=== PATIENT | female | born 1990 | race Two or more races ===

== ENCOUNTER 2016-02-28 10:48 | Emergency (ER) | payer SELFPAY ==
[2016-02-28 11:04] VITALS: BP 120/79
--- NOTE | 2016-02-28 12:51 | ER Document Report ---
Addendum entered and electronically signed by MIRIAM LINDO FNP 12:53: Discharge - Discharge Clinical Impression: Muscle strain of chest wall Disposition: HOME, SELF-CARE Additional Instructions: Chest Wall Pain Your chest pain has been diagnosed as coming from the chest wall. This is often caused by straining the muscles or joints in the chest during physical activity, direct trauma, coughing, or vigorous vomiting. Persons with arthritis are especially prone to this type of pain, due to inflammation of the cartilage joints near the breast bone. Occasionally, no cause can be found. Rest from strenuous physical activity. This kind of chest pain is usually made worse by movement of the chest. Depending on the symptoms, we may prescribe medicine for pain, muscle relaxation, and antiinflammatory effects. If the pain is new, and seems to be due to muscle strain, cold packs can help. Otherwise, apply gentle warmth to the painful area for 15 minutes every hour or two. You should contact the doctor immediately if things change. Further evaluation is needed if you develop a fever or cough, if the nature of the pain changes, or if you become short of breath. Prescriptions: Naproxen Sodium [Naproxen Sodium ER] 500 mg PO Q12 PRN #20 tablet.sa PRN Reason: Original Note: ED General - General Chief Complaint: Chest Wall Pain Stated Complaint: CHEST PAIN TRAVEL OUTSIDE OF THE [place] IN LAST 30 DAYS: No - HPI Patient complains to provider of: patient complains of chest wall pain right lateral of midline for 3 days - Related Data Allergies/Adverse Reactions: No Known Allergies Allergy (Verified 02/28/16 11:27) Past Medical History - General Information source: Patient Last Menstrual Period: 02/25/16 - Social History Smoking Status: Current Some Day Smoker Chew tobacco use (# tins/day): No Frequency of alcohol use: None Drug Abuse: None Family History: Reviewed & Not Pertinent Patient has suicidal ideation: No Patient has homicidal ideation: No Past Surgical History: Reports: Hx Gynecologic Surgery - Immunizations Hx Diphtheria, Pertussis, Tetanus Vaccination: Yes Review of Systems - Review of Systems Constitutional: No symptoms reported EENT: No symptoms reported Cardiovascular: No symptoms reported Respiratory: No symptoms reported Gastrointestinal: No symptoms reported Genitourinary: No symptoms reported Female Genitourinary: No symptoms reported Musculoskeletal: No symptoms reported Skin: No symptoms reported Hematologic/Lymphatic: No symptoms reported Neurological/Psychological: No symptoms reported Physical Exam - Vital signs Vitals: Temp Pulse Resp BP Pulse Ox 98.3 F 94 18 120/79 98 02/28/16 11:03 02/28/16 11:03 02/28/16 11:03 02/28/16 11:03 02/28/16 11:03 Interpretation: Normal - General General appearance: Appears well, Alert - HEENT Head: Normocephalic, Atraumatic Eyes: Normal Pupils: PERRL - Respiratory Respiratory status: No respiratory distress Chest status: Nontender, Tender, Other - Right chest wall tender on AP compression as well as lifting both arms over her head as well as using right arm in a weightbearing fashion. Breath sounds: Normal Chest palpation: Normal - Cardiovascular Rhythm: Regular Heart sounds: Normal auscultation Murmur: No - Abdominal Inspection: Normal Distension: No distension Bowel sounds: Normal Tenderness: Nontender Organomegaly: No organomegaly - Back Back: Normal, Nontender - Extremities General upper extremity: Normal inspection, Nontender, Normal color, Normal ROM , Normal temperature General lower extremity: Normal inspection, Nontender, Normal color, Normal ROM , Normal temperature, Normal weight bearing. No: Katerin's sign - Neurological Neuro grossly intact: Yes Cognition: Normal Orientation: AAOx4 [place] Coma Scale Eye Opening: Spontaneous [place] Coma Scale Verbal: Oriented Stephen Coma Scale Motor: Obeys Commands Stephen Coma Scale Total: 15 Speech: Normal Motor strength normal: LUE, RUE, LLE, RLE Sensory: Normal - Psychological Associated symptoms: Normal affect, Normal mood - Skin Skin Temperature: Warm Skin Moisture: Dry Skin Color: Normal Course - Vital Signs Vital signs: Temp Pulse Resp BP Pulse Ox 98.3 F 94 18 120/79 98 02/28/16 11:03 02/28/16 11:03 02/28/16 11:03 02/28/16 11:03 02/28/16 11:03 - Transfer of Care Notes: 02/28/16 12:49 No chest pain no exertional chest pain chest wall pain which is reproducible with AP palpation. Nonsmoker. No drug use. Saturation is 98%. Respirations 18. Pulse 94. Does not take control. Not hypertensive. Pain is reproducible bowl with right arm movement against resistance. Discharge - Discharge Clinical Impression: Muscle strain of chest wall Disposition: HOME, SELF-CARE Additional Instructions: Chest Wall Pain Your chest pain has been diagnosed as coming from the chest wall. This is often caused by straining the muscles or joints in the chest during physical activity, direct trauma, coughing, or vigorous vomiting. Persons with arthritis are especially prone to this type of pain, due to inflammation of the cartilage joints near the breast bone. Occasionally, no cause can be found. Rest from strenuous physical activity. This kind of chest pain is usually made worse by movement of the chest. Depending on the symptoms, we may prescribe medicine for pain, muscle relaxation, and antiinflammatory effects. If the pain is new, and seems to be due to muscle strain, cold packs can help. Otherwise, apply gentle warmth to the painful area for 15 minutes every hour or two. You should contact the doctor immediately if things change. Further evaluation is needed if you develop a fever or cough, if the nature of the pain changes, or if you become short of breath. Prescriptions: Naproxen Sodium [Naproxen Sodium ER] 500 mg PO Q12 PRN #20 tablet.sa PRN Reason:
== END 2016-02-28 13:10 | disposition home or self-care (01) ==
LOC: ER 10:48
DX: S29.011A Strain of muscle and tendon of front wall of thorax, initial encounter (principal); X58.XXXA Exposure to other specified factors, initial encounter; R07.89 Other chest pain
CPT/HCPCS: 99284

== ENCOUNTER 2016-06-26 11:09 | Emergency (ER) | payer SELFPAY ==
--- NOTE | 2016-06-26 11:34 | ER Document Report ---
HPI - HPI Patient complains to provider of: low back pain Onset: Other - 3 days Onset/Duration: Persistent Quality of pain: Achy Severity: Moderate Pain Level: 3 Context: Patient presents emergency department with complaints of low midline back pain that started 3 days ago. Patient reports she rolled over in bed and felt a pop and has been having pain since then. She denies urinary or bowel incontinence or retention. She denies numbness tingling. She denies past medical history of injury to her back. Denies cancer. Denies trauma. Denies all other symptoms such as fever vomiting diarrhea. Denies pain with void. Denies urinary frequency. Patient reports she took [id number] ibuprofen yesterday without relief of symptoms. Reports she's had to miss work yesterday and today due to the pain Associated Symptoms: None Exacerbated by: Standing - sitting to standing Relieved by: Denies Similar symptoms previously: No Recently seen / treated by doctor: No - REPRODUCTIVE LMP: 06/03/16 Reproductive: DENIES: : - DERM Skin Color: Normal Past Medical History - General Information source: Patient Last Menstrual Period: 06/03/16 - Social History Smoking Status: Unknown if Ever Smoked Cigarette use (# per day): No Frequency of alcohol use: None Drug Abuse: None Occupation: [employer] Lives with: Family Family History: Reviewed & Not Pertinent Patient has suicidal ideation: No Patient has homicidal ideation: No Renal/ Medical History: Denies: Hx Peritoneal Dialysis Psychiatric Medical History: Reports: Hx Depression - & anxiety Past Surgical History: Reports: Hx Gynecologic Surgery - Immunizations Hx Diphtheria, Pertussis, Tetanus Vaccination: Yes Vertical Provider Document - CONSTITUTIONAL Agree With Documented VS: Yes Exam Limitations: No Limitations General Appearance: WD/WN, Mild Distress - winces when standing - INFECTION CONTROL TRAVEL OUTSIDE OF THE [place] IN LAST 30 DAYS: No COUNTRY TRAVELED TO/FROM: [place] - HEENT HEENT: Atraumatic, Normocephalic - NECK Neck: Normal Inspection, Supple. negative: Lymphadenopathy-Left, Lymphadenopathy-Right - RESPIRATORY Respiratory: Breath Sounds Normal, No Respiratory Distress - CARDIOVASCULAR Cardiovascular: Regular Rate, Regular Rhythm - GI/ABDOMEN Gastrointestinal: Abdomen Soft, Abdomen Non-Tender - BACK Back: Normal Inspection - No obvious deformity complains of midline low back pain good distal movement and sensation no weakness - MUSCULOSKELETAL/EXTREMETIES Musculoskeletal/Extremeties: MAEW, FROM, Non-Tender - NEURO Level of Consciousness: Awake, Alert, Appropriate Motor/Sensory: No Motor Deficit - DERM Integumentary: Warm, Dry Adult Front & Back Diagram: 1 - c/o low back pain, no erythema, no warmth,no swelling, good distal movement and sensation Course - Re-evaluation Re-evalutation: 06/26/16 11:58 The patient presents with low back pain without signs of spinal cord compression , cauda equine syndrome, infection, aneurysm, or other serious etiology. The patient is neurologically intact. The patient has good distal movement and sensation, denies urinary or bowel incontinence/retention. Given the extremely low risk of these diagnosis, further testing and evaluation for these possibilities does not appear to be indicated at this time. The patient has been instructed to return if the symptoms worsen or change in anyway. Discharge - Discharge Clinical Impression: Low back pain Qualifiers: Chronicity: acute Back pain laterality: midline Sciatica presence: without sciatica Qualified Code(s): M54.5 - Low back pain Condition: Stable Disposition: HOME, SELF-CARE Instructions: Ice Packs ([facility]), Warm Packs ([facility]), Low Back Pain ([facility]), Muscle Relaxers ([facility]), Ibuprofen (General) ([facility]) Additional Instructions: *You have been evaluated for low back pain *Take medication as prescribed *Rest/Ice- heat as directed *Follow up with a primary care provider within one week for recheck *Return to ED for worsening condition, changes, needs, concerns Prescriptions: Cyclobenzaprine HCl [Flexeril 10 Mg Tablet] 10 mg PO TID #30 tablet Ibuprofen [Motrin 800 mg Tablet] 800 mg PO TID #30 tablet Forms: Return to Work
[2016-06-26] MEDS ORDERED: IBUPROFEN 800 MG TABLET PO ONE (11:47)
[2016-06-26 11:58] VITALS: BP 116/72
== END 2016-06-26 11:55 | disposition home or self-care (01) ==
LOC: ER 11:09
DX: M54.5 Low back pain (principal)
CPT/HCPCS: 99283

== ENCOUNTER 2016-11-26 15:26 | Emergency (ER) | payer SELFPAY ==
--- NOTE | 2016-11-26 16:36 | ER Document Report ---
ED Medical Screen (RME) - General Chief Complaint: Abdominal Pain Stated Complaint: NEEDS CONFIRMATION OF Time Seen by Provider: 11/26/16 16:34 Mode of Arrival: Ambulatory Information source: Patient Notes: This is a 26-year-old female who is 6 para 2 (2 ectopic pregnancies, 2 miscarriages), last normal menstrual period October 22, reports positive test at home presents to the emergency room with abdominal cramping. TRAVEL OUTSIDE OF THE [place] IN LAST 30 DAYS: No COUNTRY TRAVELED TO/FROM: [facility] - HPI Onset: Last week Onset/Duration: Gradual Quality of pain: Cramping Severity: None Pain Level: Denies Associated Symptoms: denies: Chest pain, Fever, Shortness of breath Exacerbated by: Denies Relieved by: Denies Similar symptoms previously: Yes Recently seen / treated by doctor: No - Related Data Smoking: Non-smoker Frequency of alcohol use: None Drug Abuse: None Allergies/Adverse Reactions: No Known Allergies Allergy (Verified 11/26/16 15:32) Past Medical History - General Information source: Patient - Social History Cigarette use (# per day): No Chew tobacco use (# tins/day): No Frequency of alcohol use: None Drug Abuse: None Lives with: Family Family history: Reviewed & Not Pertinent - Medical History Medical History: Negative Renal/ Medical History: Denies: Hx Peritoneal Dialysis Psychiatric Medical History: Reports: Hx Depression - & anxiety Past Surgical History: Reports: Hx Gynecologic Surgery - Immunizations Hx Diphtheria, Pertussis, Tetanus Vaccination: Yes Review of Systems - Review of Systems Constitutional: denies: Chills, Fever EENT: No symptoms reported Cardiovascular: No symptoms reported Respiratory: No symptoms reported Gastrointestinal: See HPI Genitourinary: See HPI Female Genitourinary: See HPI Musculoskeletal: No symptoms reported Skin: No symptoms reported Hematologic/Lymphatic: No symptoms reported Neurological/Psychological: No symptoms reported Physical Exam - Vital signs Vitals: Temp Pulse Resp BP Pulse Ox 98.8 F 86 16 142/78 H 97 11/26/16 15:34 11/26/16 15:34 11/26/16 15:34 11/26/16 15:34 11/26/16 15:34 Notes: Physical exam: GENERAL: 26-year-old female, alert and oriented 3, no acute distress HEAD: Atraumatic, normocephalic. EYES: Pupils equal round and reactive to light, extraocular movements intact, sclera anicteric, conjunctiva are normal. ENT: TMs normal, nares patent, oropharynx clear without exudates. Moist mucous membranes. NECK: Normal range of motion, supple without obvious mass or JVD. LUNGS: Breath sounds clear to auscultation bilaterally and equal. No wheezes rales or rhonchi. HEART: Regular rate and rhythm without murmurs, rubs or gallops. ABDOMEN: Soft, normoactive bowel sounds. No tenderness to palpation. No guarding, no rebound. No masses appreciated. EXTREMITIES: Normal range of motion, no pitting or edema. No clubbing or cyanosis. NEUROLOGICAL: Cranial nerves II through XII grossly intact. Normal speech, moving all extremities. PSYCH: Normal mood, normal affect. SKIN: Warm, Dry, normal turgor, no rashes or lesions noted. Course - Re-evaluation Re-evalutation: 11/26/16 18:57 Ultrasound shows a viable intrauterine at approximately 6 weeks 1 day. Beta quant is normal. Blood type is O+ (no need for RhoGam). I will refer the patient [facility]. - Vital Signs Vital signs: Temp Pulse Resp BP Pulse Ox 98.8 F 86 16 142/78 H 97 11/26/16 15:34 11/26/16 15:34 11/26/16 15:34 11/26/16 15:34 11/26/16 15:34 - Laboratory Laboratory results interpreted by me: 11/26/16 11/26/16 16:48 16:48 Beta HCG, Quant 91372.00 H Ur Leukocyte Esterase TRACE H Doctor's Discharge - Discharge Clinical Impression: Pelvic cramping, First trimester , uti Condition: Stable Disposition: HOME, SELF-CARE Instructions: Urinary Tract Infection ([facility]) Additional Instructions: The ultrasound shows a viable intrauterine . The baby level in the blood was good. The urine analysis does show a few white cells in the urine and you could be starting to have a urine infection. Thank you for choosing [facility] for your care. The examination and treatment you have received in the Emergency Department today has been rendered on an emergency basis only and is not intended to be a substitute for complete medical care. You should contact your follow-up physician as it is important that he or she examine you for any new or remaining problems. If given a copy of any lab tests or radiology reports, please bring them with you when you see your physician. If your problem worsens or new symptoms appear and you are unable to arrange prompt follow-up care, return to the Emergency Department. Specific signs to look out for: Worsening pain and cramping, vaginal bleeding. Any other instructions: Rest, drink plenty of fluids. Take the antibiotics as prescribed. Call the [facility] for a follow-up appointment. Call tomorrow. Prescriptions: Cephalexin Monohydrate [Keflex 500 mg Capsule] 500 mg PO Q6H 5 Days capsule Referrals: VALENTÍN CASTRO MD [ACTIVE STAFF] - Follow up tomorrow (this is the number for the [facility])
[2016-11-26 17:32] LABS: APPEARANCE,URINE SLIGHTLY-CLOUDY; BILIRUBIN,URINE NEGATIVE (NEGATIVE); GLUCOSE, URINE NEGATIVE (NEGATIVE); KETONES,URINE NEGATIVE (NEGATIVE); LEUKOCYTE ESTERASE,URINE TRACE (NEGATIVE); NITRITE,URINE NEGATIVE (NEGATIVE); PROTEIN,URINE NEGATIVE (NEGATIVE); URINE SPECIFIC GRAVITY 1.026; UROBILINOGEN,URINE NEGATIVE mg/dL (<2.0)
--- NOTE | 2016-11-26 18:46 | RADIOLOGY REPORT (SQ) ---
EXAM DESCRIPTION: U/S OB TRANSVAG W/DOPPLER COMPLETED DATE/TIME: 11/26/2016 6:17 pm REASON FOR STUDY: abd cramping COMPARISON: None. TECHNIQUE: Transvaginal static and realtime grayscale images acquired of the pelvis. Additional fito cted spectral and color Doppler images recorded. All images stored on PACs. bHCG: Pending. LIMITATIONS: None. FINDINGS: FETUS: Living intrauterine . EGA: 6 weeks 1 day FHR: 116 beats per minute. SUBCHORIONIC BLEED: No SIZE OF BLEED: Not applicable. UTERUS: No masses or anomalies. 9.6 x 5.3 x 4.7 cm. CERVICAL LENGTH: 3.3 cm. Closed. RIGHT ADNEXA: Normal ovary with normal vascular flow. 2 x 1.1 x 1.5 cm. No adnexal free fluid. No adnexal masses. LEFT ADNEXA: Normal ovary with normal vascular flow. There is a 19 x 15 x 13 mm cyst. The ovary betzaida sures 3.8 x 3.1 x 3.2 cm. No adnexal free fluid. No adnexal masses. FREE FLUID: None. OTHER: No other significant finding. IMPRESSION: LIVING INTRAUTERINE . EGA 6 weeks 1 day Trimester of : First - 0 to 13 weeks. TECHNICAL DOCUMENTATION: JOB ID: [id number]- All Rights Reserved
[2016-11-26 19:21] VITALS: BP 138/81
== END 2016-11-26 19:19 | disposition home or self-care (01) ==
LOC: ER 15:26
DX: O26.91 Pregnancy related conditions, unspecified, first trimester (principal); O23.41 Unspecified infection of urinary tract in pregnancy, first trimester; Z3A.01 Less than 8 weeks gestation of pregnancy
CPT/HCPCS: 36415; 76817; 81001; 84702; 86900; 86901; 93976; 99284

== ENCOUNTER 2016-12-24 17:31 | Emergency (ER) | payer MEDICAID ==
--- NOTE | 2016-12-24 18:27 | ER Document Report ---
ED General - General Chief Complaint: Sinus Pain Stated Complaint: SINUS PAIN, ABDOMINAL PAIN Time Seen by Provider: 12/24/16 18:16 Notes: Patient is a 26-year-old female, at about 9 weeks gestation by first trimester ultrasound that comes emergency department for 2 complaints. First complaint is 3 days of worsening congestion, cough, and sinus pressure. She denies fever, she wrote shortness of breath on her complaint but she denies shortness of breath to me. She does report occasional sneezing and coughing. She does not smoke. She also reports that she has started to have intermittent sharp pelvic pains. She denies vaginal bleeding. She states she is very worried about the pain because she has had history of ectopic pregnancies and miscarriages. She denies flank pain, vomiting. TRAVEL OUTSIDE OF THE [place] IN LAST 30 DAYS: No COUNTRY TRAVELED TO/FROM: [facility] - Related Data Allergies/Adverse Reactions: No Known Allergies Allergy (Verified 12/24/16 17:51) Past Medical History - General Information source: Patient - Social History Smoking Status: Never Smoker Frequency of alcohol use: None Drug Abuse: None Lives with: Family Family History: Reviewed & Not Pertinent Patient has suicidal ideation: No Patient has homicidal ideation: No Renal/ Medical History: Denies: Hx Peritoneal Dialysis Psychiatric Medical History: Reports: Hx Depression - & anxiety Past Surgical History: Reports: Hx Gynecologic Surgery - Immunizations Hx Diphtheria, Pertussis, Tetanus Vaccination: Yes Review of Systems - Review of Systems Constitutional: See HPI EENT: See HPI Cardiovascular: No symptoms reported Respiratory: See HPI Gastrointestinal: See HPI Genitourinary: See HPI Female Genitourinary: See HPI Musculoskeletal: No symptoms reported Skin: No symptoms reported Hematologic/Lymphatic: No symptoms reported Neurological/Psychological: No symptoms reported Physical Exam - Vital signs Vitals: Temp Pulse Resp BP Pulse Ox 98.2 F 84 16 126/78 H 97 12/24/16 17:51 12/24/16 17:51 12/24/16 17:51 12/24/16 17:51 12/24/16 17:51 Interpretation: Normal - General General appearance: Appears well, Alert, Anxious In distress: None - HEENT Head: Normocephalic, Atraumatic Eyes: Normal Conjunctiva: Normal Extraocular movements intact: Yes Eyelashes: Normal Pupils: PERRL Ears: Normal External canal: Normal Tympanic membrane: Normal Sinus: Maxillary - Tenderness mainly over the left maxillary area Nasal: Clear rhinorrhea Mouth/Lips: Normal Mucous membranes: Normal Pharynx: Normal. No: Erythema, Exudate, Tonsillar hypertrophy Neck: Normal. No: Anterior cervical chain, Posterior cervical chain - Respiratory Respiratory status: No respiratory distress. No: Labored, Tachypnea Chest status: Nontender Breath sounds: Normal. No: Decreased air movement, Nonproductive cough, Wheezing Chest palpation: Normal - Cardiovascular Rhythm: Regular. No: Tachycardia Heart sounds: Normal auscultation, S1 appreciated, S2 appreciated Murmur: No - Abdominal Inspection: Normal Distension: No distension Bowel sounds: Normal Tenderness: Tender - Very mild generalized lower abdominal tenderness, nonspecific, no guarding, no rigidity - Back Back: Normal, Nontender. No: Tender, CVA tenderness - Extremities General upper extremity: Normal inspection, Nontender, Normal ROM, Normal strength General lower extremity: Normal inspection, Nontender, Normal ROM, Normal strength - Neurological Neuro grossly intact: Yes Cognition: Normal Orientation: AAOx4 [place] Coma Scale Eye Opening: Spontaneous [place] Coma Scale Verbal: Oriented Stephen Coma Scale Motor: Obeys Commands [place] Coma Scale Total: 15 Speech: Normal Motor strength normal: LUE, RUE, LLE, RLE Sensory: Normal - Psychological Associated symptoms: Normal affect, Normal mood - Skin Skin Temperature: Warm Skin Moisture: Dry Skin Color: Normal Course - Re-evaluation Re-evalutation: Patient is congested, has sinus tenderness, appears to have an upper respiratory viral infection with additional sinusitis. Very soft abdomen with only mild generalized tenderness. Patient becomes very easily tearful. She is very anxious about the abdominal pain she is having, appears to be mainly with cough and sneezing, I discussed this with patient but she remains concerned. Urinalysis performed, ultrasound performed to evaluate pelvic pain, patient declines pelvic exam. Urinalysis showing elevated specific gravity but no infection. Ultrasound does show slightly elevated heart rate but does show heart rate along with normal-appearing intrauterine . Unremarkable ovaries. On reexamination patient with no significant change. I discussed this with patient in detail. Providing treatments for sinus infection, discussed follow- up and return precautions, patient states understanding and agreement. - Vital Signs Vital signs: Temp Pulse Resp BP Pulse Ox 98.2 F 84 16 126/78 H 97 12/24/16 17:51 12/24/16 17:51 12/24/16 17:51 12/24/16 17:51 12/24/16 17:51 - Laboratory Laboratory results interpreted by me: 12/24/16 12/24/16 18:55 19:05 Beta HCG, Quant 938300.00 H Urine Ketones TRACE H Urine Urobilinogen 4.0 H Discharge - Discharge Clinical Impression: Abdominal cramping affecting Upper respiratory infection Qualifiers: URI type: unspecified URI Qualified Code(s): J06.9 - Acute upper respiratory infection, unspecified Sinusitis Qualifiers: Sinusitis location: maxillary Chronicity: acute Recurrence: non-recurrent Qualified Code(s): J01.00 - Acute maxillary sinusitis, unspecified Condition: Stable Disposition: HOME, SELF-CARE Additional Instructions: Your workup shows some dehydration, please improve your hydration on a daily basis. Her son shows living in the uterus without any obvious complications or abnormalities. Your examinations is consistent with a viral upper respiratory infection along with developing sinus infection. Take the amoxicillin as prescribed, use the nasal spray as prescribed, take Tylenol for pain, take Benadryl to help you sleep and reduce congestion. Follow-up with [employer]. Return to emergency department for any concerning or worsening symptoms including fever, difficulty breathing, developing pain in your abdomen, or any other concerning symptoms. Prescriptions: Amoxicillin Trihydrate [Amoxil 500 mg Capsule] 500 mg PO TID #21 cap Fluticasone Propionate [Flonase Nasal Raymond 50 Mcg/Raymond 16 gm] 2 sprays NASL Q12 #1 inhaler
[2016-12-24 19:38] LABS: APPEARANCE,URINE SLIGHTLY-CLOUDY; BILIRUBIN,URINE NEGATIVE (NEGATIVE); GLUCOSE, URINE NEGATIVE (NEGATIVE); KETONES,URINE TRACE mg/dL (NEGATIVE); LEUKOCYTE ESTERASE,URINE NEGATIVE (NEGATIVE); NITRITE,URINE NEGATIVE (NEGATIVE); PROTEIN,URINE NEGATIVE (NEGATIVE); URINE SPECIFIC GRAVITY 1.025
--- NOTE | 2016-12-24 19:57 | RADIOLOGY REPORT (SQ) ---
EXAM DESCRIPTION: U/S OB TRANSVAG W/DOPPLER COMPLETED DATE/TIME: 12/24/2016 7:29 pm REASON FOR STUDY: pelvic pain and cramping COMPARISON: 11/26/2016 TECHNIQUE: Transvaginal static and realtime grayscale images acquired of the pelvis. Additional fito cted spectral and color Doppler images recorded. All images stored on PACs. bHCG: Not available LIMITATIONS: None. FINDINGS: FETUS: Living intrauterine . EGA: 10 weeks 2 days BERTA: 07/20/2017 FHR: 178 beats per minute. SUBCHORIONIC BLEED: No SIZE OF BLEED: Not applicable. UTERUS: No masses. No anomalies. CERVICAL LENGTH: 3.4 sign Closed. RIGHT ADNEXA: Right ovary was not visualized. No adnexal free fluid. No adnexal masses. LEFT ADNEXA: Normal ovary with normal vascular flow. No adnexal free fluid. No adnexal masses. FREE FLUID: None. OTHER: No other significant finding. IMPRESSION: LIVING INTRAUTERINE . EGA 10 weeks 2 days Trimester of : First - 0 to 13 weeks. TECHNICAL DOCUMENTATION: JOB ID: [id number] [employer]- All Rights Reserved
[2016-12-24 21:09] VITALS: BP 142/75
== END 2016-12-24 21:05 | disposition home or self-care (01) ==
LOC: ER 17:31
DX: O99.519 Diseases of the respiratory system complicating pregnancy, unspecified trimester (principal); J01.00 Acute maxillary sinusitis, unspecified; O26.899 Other specified pregnancy related conditions, unspecified trimester; R10.2 Pelvic and perineal pain; R10.817 Generalized abdominal tenderness; R05 Cough; R06.7 Sneezing; Z3A.00 Weeks of gestation of pregnancy not specified; Z87.59 Personal history of other complications of pregnancy, childbirth and the puerperium
CPT/HCPCS: 36415; 76817; 81001; 84702; 93976; 99284

== ENCOUNTER 2018-12-07 17:02 | Emergency (ER) | payer MEDICAID ==
--- NOTE | 2018-12-07 17:19 | ER Document Report ---
ED Medical Screen (RME) - General Chief Complaint: OB Problem (>20wk) Stated Complaint: ABDOMINAL CRAMPING Time Seen by Provider: 12/07/18 17:17 Mode of Arrival: Ambulatory Notes: Patient presents stating that she is about 3 months . Patient reports pelvic cramping. Patient does report some dysuria. Patient said symptoms for the past 2 days. No vaginal bleeding or discharge. I have greeted and performed a rapid initial assessment of this patient. A comprehensive ED assessment and evaluation of the patient, analysis of test results and completion of the medical decision making process will be conducted by additional ED providers. TRAVEL OUTSIDE OF THE [place] IN LAST 30 DAYS: No COUNTRY TRAVELED TO/FROM: [facility] - Related Data Allergies/Adverse Reactions: No Known Allergies Allergy (Verified 12/24/16 17:51) Past Medical History - Social History Family history: Reviewed & Not Pertinent Renal/ Medical History: Denies: Hx Peritoneal Dialysis Psychiatric Medical History: Reports: Hx Depression - & anxiety Past Surgical History: Reports: Hx Gynecologic Surgery - Immunizations Hx Diphtheria, Pertussis, Tetanus Vaccination: Yes Physical Exam - Vital signs Vitals: Temp Pulse Resp BP Pulse Ox 98.2 F 87 16 125/77 98 12/07/18 17:09 12/07/18 17:09 12/07/18 17:09 12/07/18 17:09 12/07/18 17:09 - Abdominal Tenderness: Tender - Lower pelvic Course - Vital Signs Vital signs: Temp Pulse Resp BP Pulse Ox 98.2 F 87 16 125/77 98 12/07/18 17:09 12/07/18 17:09 12/07/18 17:09 12/07/18 17:09 12/07/18 17:09
[2018-12-07 18:03] LABS: APPEARANCE,URINE CLEAR; BILIRUBIN,URINE NEGATIVE (NEGATIVE); COLOR,URINE YELLOW; GLUCOSE, URINE NEGATIVE (NEGATIVE); KETONES,URINE NEGATIVE (NEGATIVE); PROTEIN,URINE NEGATIVE (NEGATIVE); URINE SPECIFIC GRAVITY 1.014; UROBILINOGEN,URINE NEGATIVE mg/dL (<2.0)
[2018-12-07 18:04] LABS: ABSOLUTE EOSINOPHILS # (AUTO) 0.2 10^3/uL (0.0-0.6); ABSOLUTE LYMPHOCYTES (AUTO) 1.9 10^3/uL (0.5-4.7); ABSOLUTE MONOCYTES (AUTO) 0.5 10^3/uL (0.1-1.4); ABSOLUTE NEUT (AUTO) 5.7 10^3/uL (1.7-8.2); BASOPHILS % (AUTO) 0.4 % (0-2); EOSINOPHILS % (AUTO) 2.1 % (0-6); HEMATOCRIT 38.6 % (36.0-47.0); MEAN CORPUSCULAR HEMOGLOBIN 29.5 pg (27.0-33.4); MEAN CORPUSCULAR HGB CONC 33.7 g/dL (32.0-36.0); MEAN CORPUSCULAR VOLUME 88 fl (80-97); MONOCYTES % (AUTO) 6.4 % (3-13); PLATELET COUNT 181 10^3/uL (150-450); RED BLOOD COUNT 4.42 10^6/uL (3.72-5.28); RED CELL DISTRIBUTION WIDTH 14.3 % (11.5-14.0); SEGMENTED NEUTROPHILS % (AUTO) 68.1 % (42-78); TOTAL CELLS COUNTED % (AUTO) 100 %; WHITE BLOOD COUNT 8.4 10^3/uL (4.0-10.5)
--- NOTE | 2018-12-07 18:43 | ER Document Report ---
ED General - General Chief Complaint: Abdominal Cramping Stated Complaint: ABDOMINAL CRAMPING Time Seen by Provider: 12/07/18 17:17 Mode of Arrival: Ambulatory TRAVEL OUTSIDE OF THE [place] IN LAST 30 DAYS: No COUNTRY TRAVELED TO/FROM: [facility] - HPI Notes: Patient is a G7, P3 female who believes she is at approximately 9 weeks gestation who presents to the emergency department for evaluation. She is been having lower abdominal cramping for the last couple of days. She denies any vaginal bleeding. No fevers or chills. No urinary symptoms. She does states she is been having emesis, nearly every day. She attributes this to the . She has not yet had an ultrasound. She is still waiting to see the health department. - Related Data Allergies/Adverse Reactions: No Known Allergies Allergy (Verified 12/24/16 17:51) Past Medical History - General Information source: Patient - Social History Smoking Status: Unknown if Ever Smoked Family History: Reviewed & Not Pertinent Patient has suicidal ideation: No Patient has homicidal ideation: No Renal/ Medical History: Denies: Hx Peritoneal Dialysis Psychiatric Medical History: Reports: Hx Depression - & anxiety Past Surgical History: Reports: Hx Gynecologic Surgery - Immunizations Hx Diphtheria, Pertussis, Tetanus Vaccination: Yes Review of Systems - Review of Systems Constitutional: No symptoms reported EENT: No symptoms reported Cardiovascular: No symptoms reported Respiratory: No symptoms reported Gastrointestinal: See HPI Genitourinary: No symptoms reported Female Genitourinary: See HPI Musculoskeletal: No symptoms reported Skin: No symptoms reported Neurological/Psychological: No symptoms reported Physical Exam - Vital signs Vitals: Temp Pulse Resp BP Pulse Ox 98.2 F 87 16 125/77 98 12/07/18 17:09 12/07/18 17:09 12/07/18 17:09 12/07/18 17:09 12/07/18 17:09 - Notes Notes: Vital signs reviewed, please refer to chart. Head is normocephalic, atraumatic. Pupils equal round, reactive to light. Neck is supple without meningismus. Heart is regular rate and rhythm. Lungs are clear to auscultation bilaterally. Abdomen is soft, nontender, normoactive bowel sounds throughout. Extremities without cyanosis, clubbing. Posterior calves are nontender. Peripheral pulses are equal. Skin is warm and dry. Patient is awake, alert, neurological exam is nonfocal. Course - Re-evaluation Re-evalutation: 12/07/18 18:42 Patient presents emergency department for evaluation. She has nausea and vomiting associated with . She is not really nauseated now. I will then send her home with a prescription for likely just. Laboratory inve stigations are largely unremarkable. She did not have any significant blood or infection signs in her urine. Awaiting ultrasound. Patient remained stable, will continue to monitor. 12/07/18 20:19 Imaging was unremarkable, IUP identified. Urine testing does not fact reveal gonorrhea. Patient covered with Rocephin, Zithromax. Results explained to her. She is to follow-up with the health department, return to the ED with worsening or new concerning symptoms. I will send her home with a prescription for likely just given her nausea and vomiting. - Vital Signs Vital signs: Temp Pulse Resp BP Pulse Ox 98.2 F 87 16 125/77 98 12/07/18 17:09 12/07/18 17:09 12/07/18 17:09 12/07/18 17:09 12/07/18 17:09 - Laboratory Result Diagrams: 12/07/18 17:38 Laboratory results interpreted by me: 12/07/18 12/07/18 17:38 17:38 RDW 14.3 H N.gonorrhoeae DNA (PCR) DETECTED H - Diagnostic Test Radiology reviewed: Reports reviewed Radiology results interpreted by me: 12/07/18 20:19 Obstetrics Ultrasound 12/07/18 17:18 IMPRESSION: SINGLE LIVING INTRAUTERINE . EGA of 11 weeks 5 days Trimester of : First trimester - 0 to 13 weeks. Discharge - Discharge Clinical Impression: Gonorrhea, related nausea and vomiting, antepartum Pelvic pain affecting Qualifiers: Trimester: first trimester Qualified Code(s): O26.891 - Other specified related conditions, first trimester; R10.2 - Pelvic and perineal pain Condition: Stable Disposition: HOME, SELF-CARE Instructions: Gonorrhea ([facility]), Pelvic Pain in ([facility]) Additional Instructions: Follow-up with the health department this week. Return to the emergency department with worsening or new concerning symptoms of any sort.
--- NOTE | 2018-12-07 18:59 | RADIOLOGY REPORT (SQ) ---
EXAM DESCRIPTION: U/S OB TRANSVAGINAL W/O DOP COMPLETED DATE/TIME: 12/07/2018 6:35 pm REASON FOR STUDY: pelvic pain COMPARISON: None. TECHNIQUE: Transabdominal static and realtime grayscale images acquired of the pelvis. Additional se lected spectral and color Doppler images recorded. All images stored on PACs. bHCG: Not ordered CLINICAL DATES: 11 weeks 1 day LIMITATIONS: None. FINDINGS: FETUS: Single Living intrauterine . ULTRASOUND EGA: 11 weeks 5 days ULTRASOUND BERTA: 07/11/2019 EFW: Not applicable less than 20 weeks. CRL: 4.9 cm FHR: 163 beats per minute. SURVEY: No visualized anomalies. AMNIOTIC FLUID: Adequate amount. PLACENTA: Not yet developed due to early gestation. SUBCHORIONIC BLEED: No. SIZE OF BLEED: Not applicable. UTERUS: No masses. No anomalies. CERVICAL LENGTH: 3.3 Closed. RIGHT ADNEXA: Normal ovary with normal vascular flow. No adnexal free fluid. No adnexal masses. LEFT ADNEXA: Normal ovary with normal vascular flow. No adnexal free fluid. No adnexal masses. FREE FLUID: None. OTHER: No other significant finding. IMPRESSION: SINGLE LIVING INTRAUTERINE . EGA of 11 weeks 5 days Trimester of : First trimester - 0 to 13 weeks. TECHNICAL DOCUMENTATION: JOB ID: [id number] [employer]- All Rights Reserved rev Reading location - IP/workstation name: [email or web address]
[2018-12-07 19:27] LABS: CHLAM PCR NOT DETECTED (NOT DETECT)
[2018-12-07] MEDS ORDERED: CEFTRIAXONE INJ 250 MG VIAL IM ONE (20:01)
[2018-12-07] MEDS ORDERED: AZITHROMYCIN 250 MG TABLET PO ONE (20:02)
[2018-12-07 21:20] VITALS: BP 106/69
== END 2018-12-07 21:20 | disposition home or self-care (01) ==
LOC: ER 17:02
DX: O98.211 Gonorrhea complicating pregnancy, first trimester (principal); O21.9 Vomiting of pregnancy, unspecified; O26.891 Other specified pregnancy related conditions, first trimester; R10.2 Pelvic and perineal pain; Z3A.00 Weeks of gestation of pregnancy not specified
CPT/HCPCS: 36415; 85025; 81001; 87491; 87591; 76817; Q0144; J0696; 96372; 99284

== ENCOUNTER 2019-03-30 10:00 | Outpatient (CLI) | payer MEDICAID ==
[2019-03-30 10:48] LABS: APPEARANCE,URINE CLEAR; BILIRUBIN,URINE NEGATIVE (NEGATIVE); COLOR,URINE YELLOW; GLUCOSE, URINE NEGATIVE (NEGATIVE); KETONES,URINE NEGATIVE (NEGATIVE); LEUKOCYTE ESTERASE,URINE TRACE (NEGATIVE); NITRITE,URINE NEGATIVE (NEGATIVE); PROTEIN,URINE NEGATIVE (NEGATIVE); URINE SPECIFIC GRAVITY 1.019; UROBILINOGEN,URINE NEGATIVE mg/dL (<2.0)
[2019-03-30 11:10] LABS: URINE AMPHETAMINES SCREEN NEGATIVE; URINE BARBITURATES SCREEN NEGATIVE; URINE BENZODIAZEPINES SCREEN NEGATIVE; URINE COCAINE SCREEN NEGATIVE; URINE METHADONE SCREEN NEGATIVE; URINE PHENCYCLIDINE SCREEN NEGATIVE
[2019-03-30 11:17] LABS: URINE MARIJUANA (THC) SCREEN UNCONFIRMED POSITIVE
== END 2019-03-30 11:07 | disposition home or self-care (01) ==
LOC: LC 10:00
PROVIDERS: ATTEND Obstetrics & Gynecology
PROC: 4A1HXCZ Monitoring of Products of Conception, Cardiac Rate, External Approach (ICD-10-PCS; principal; 2019-03-30)
DX: O36.8120 Decreased fetal movements, second trimester, not applicable or unspecified (principal); Z3A.27 27 weeks gestation of pregnancy
CPT/HCPCS: 59899; 81001; 80307; G0480 ×2; 80349

== ENCOUNTER 2019-06-18 06:13 | Inpatient (IN) | payer MEDICAID ==
[2019-06-15 09:33] LABS: ABSOLUTE EOSINOPHILS # (AUTO) 0.1 10^3/uL (0.0-0.6); ABSOLUTE LYMPHOCYTES (AUTO) 1.5 10^3/uL (0.5-4.7); ABSOLUTE MONOCYTES (AUTO) 0.4 10^3/uL (0.1-1.4); ABSOLUTE NEUT (AUTO) 4.2 10^3/uL (1.7-8.2); BASOPHILS % (AUTO) 0.2 % (0-2); EOSINOPHILS % (AUTO) 1.8 % (0-6); HEMOGLOBIN 11.2 g/dL (12.0-15.5); LYMPHOCYTES % (AUTO) 23.6 % (13-45); MEAN CORPUSCULAR HEMOGLOBIN 30.7 pg (27.0-33.4); MEAN CORPUSCULAR HGB CONC 34.9 g/dL (32.0-36.0); MEAN CORPUSCULAR VOLUME 88 fl (80-97); MONOCYTES % (AUTO) 6.6 % (3-13); PLATELET COUNT 215 10^3/uL (150-450); RED BLOOD COUNT 3.65 10^6/uL (3.72-5.28); RED CELL DISTRIBUTION WIDTH 15.2 % (11.5-14.0); SEGMENTED NEUTROPHILS % (AUTO) 67.8 % (42-78); TOTAL CELLS COUNTED % (AUTO) 100 %; WHITE BLOOD COUNT 6.2 10^3/uL (4.0-10.5)
[2019-06-15 09:43] LABS: APPEARANCE,URINE CLEAR; BILIRUBIN,URINE NEGATIVE (NEGATIVE); COLOR,URINE YELLOW; GLUCOSE, URINE NEGATIVE (NEGATIVE); KETONES,URINE NEGATIVE (NEGATIVE); LEUKOCYTE ESTERASE,URINE TRACE (NEGATIVE); NITRITE,URINE NEGATIVE (NEGATIVE); PROTEIN,URINE NEGATIVE (NEGATIVE); URINE SPECIFIC GRAVITY 1.013; UROBILINOGEN,URINE NEGATIVE mg/dL (<2.0)
[2019-06-15 09:53] LABS: URINE AMPHETAMINES SCREEN NEGATIVE; URINE BARBITURATES SCREEN NEGATIVE; URINE BENZODIAZEPINES SCREEN NEGATIVE; URINE COCAINE SCREEN NEGATIVE; URINE METHADONE SCREEN NEGATIVE; URINE PHENCYCLIDINE SCREEN NEGATIVE
[2019-06-15 10:24] LABS: URINE MARIJUANA (THC) SCREEN UNCONFIRMED POSITIVE
[~2019-06-18 06:13] MED LIST: CEFAZOLIN SODIUM 2 GM in DEXTROSE 5%-WATER 100 ML IV PRN; LACTATED RINGERS 1000 ML IV PRN; LIDOCAINE 0.5% INJ-PF (5 MG/ML) 50 ML SDV SUBCUT PRN; RINGERS SOLUTION,LACTATED 1,000 ML IV PRN
[2019-06-18] MEDS ORDERED: OXYTOCIN 10 UNIT/ML VIAL ONE (08:47)
[2019-06-18] MEDS ORDERED: DIPHENHYDRAMINE HCL 50 MG/ML VIAL ONE (08:47)
[2019-06-18] MEDS ORDERED: KETOROLAC TROMETHAMINE INJ/PF 30 MG/1 ML SDV ONE (08:47)
[2019-06-18] MEDS ORDERED: GLYCOPYRROLATE INJ 0.4 MG/2 ML VIAL ONE (08:47)
[2019-06-18] MEDS ORDERED: OXYTOCIN/NORMAL SALINE 20 UNIT/1,000 ML RTUINJ ONE (08:48)
[2019-06-18] MEDS ORDERED: ONDANSETRON HCL INJ/PF 4 MG/2 ML SDV ONE (08:48)
[2019-06-18] MEDS ORDERED: FENTANYL CITRATE INJ/PF 100 MCG/2 ML AMPUL ONE (08:48)
[2019-06-18] MEDS ORDERED: MIDAZOLAM 2 MG/2 ML INJ ONE (08:48)
[2019-06-18] MEDS ORDERED: EPHEDRINE SULFATE INJ 50 MG/1 ML AMPULE ONE (08:48)
[2019-06-18] MEDS ORDERED: OXYCODONE-ACETAMINOPHEN 5-325 MG TABLET PO PRN ×3 (09:37→09:58)
[2019-06-18] MEDS ORDERED: FENTANYL CITRATE INJ/PF 100 MCG/2 ML AMPUL IV PRN ×3 (09:37)
[2019-06-18] MEDS ORDERED: MEPERIDINE HCL/PF INJ 25 MG/1 ML DISP.SYRIN IV PRN (09:37)
[2019-06-18] MEDS ORDERED: DIPHENHYDRAMINE HCL 50 MG/ML VIAL IV PRN (09:37)
[2019-06-18] MEDS ORDERED: MORPHINE SULFATE 10 MG/ML INJ IV PRN (09:37)
[2019-06-18] MEDS ORDERED: PROMETHAZINE HCL INJ 25 MG/1 ML VIAL IV PRN ×3 (09:37→09:58)
[2019-06-18] MEDS ORDERED: MEASLES,MUMPS&RUBELLA VACC/PF 0.5 ML VIAL SUBCUT PRN (09:58)
[2019-06-18] MEDS ORDERED: ACETAMINOPHEN 325 MG TABLET PO PRN (09:58)
[2019-06-18] MEDS ORDERED: OXYTOCIN/NORMAL SALINE 20 UNIT/1,000 ML RTUINJ IV PRN (09:58)
[2019-06-18] MEDS ORDERED: ACETAMINOPHEN 1,000 MG/100 ML RTUPB IV PRN (09:58)
[2019-06-18] MEDS ORDERED: DIPH/PERTUSS(ACELL)/TETANUS VAC/PF 0.5 ML SYR (>=10YO) IM PRN (09:58)
[2019-06-18] MEDS ORDERED: SIMETHICONE 80 MG TAB.CHEW PO PRN (09:58)
--- NOTE | 2019-06-18 09:58 | PDOC DELIVERY SUMMARY ---
Delivery Summary - Maternal Hx : VIII Hx # Term Pregnancies: 3 Hx Total # of Abortions (Sponateous & Elective): 2 BERTA: 06/25/19 Gestational Age: 39 Risk Factors: Previous Ruptured Membranes: AROM Time of Rupture: 09:31 Fluids: Clear - Delivery Presentation: Vertex Heart Rate Monitoring: Done Pre-Operatively Support Person Present: Yes Location: OR : Scheduled Placenta: Within Normal Limits Nuchal Cord: No Delivery of Placenta Date: 06/18/19 Delivery of Placenta Time: 09:32 - Medications Type of Anesthesia:: Spinal - Assess and Care Baby 1 Male Delivery of Infant Date: 06/18/19 Delivery of Time: 09:32 at 1 minute: 8 at 5 minutes: 9 Preprinted Number On Band: [id number] Infant Skin to Skin: No Mode of Transport: Bassinet - Delivery Personnel Armature Winder Repair Helper: LUPE QUIÑONEZ RN: YAHIR COYNE RN: CHRISTIANO MCDONALD MD: SERA PARSON
--- NOTE | 2019-06-18 10:02 | Operative Report ---
Operative Report DATE OF SURGERY: 06/18/19 PREOPERATIVE DIAGNOSIS: IUP at term prior section prior ectopic POSTOPERATIVE DIAGNOSIS: Same OPERATION: Repeat low transverse section delivery of a viable SURGEON: SERA PARSON ANESTHESIA: Spinal TISSUE REMOVED OR ALTERED: Placenta ESTIMATED BLOOD LOSS: June 100 cc PROCEDURE: The patient was taken to the operating room where spinal anesthesia was obtained and found to be adequate. She was then prepped and draped in the normal sterile fashion and placed in the dorsal supine position with a leftward tilt. A Pfannenstiel skin incision was then made and carried through to the underlying layers of the fascia with the scalpel. The fascia was incised in the midline and the incision extended laterally with the Mukherjee scissors. The superior aspect of the fascial incision was then grasped with Viet clamps elevated and the underlying rectus muscles dissected off bluntly. Attention was then turned to the inferior aspect of the fascial incision which in a similar fashion was grasped, tented up with Yehuda clamps, and the rectus muscles dissected off bluntly. The rectus muscles were then in the midline and the peritoneum at the amount identified and entered bluntly. The peritoneal incision was then extended superiorly and inferiorly with good visualization of the bladder. [The bladder blade was inserted and the vesicouterine peritoneum identified grasped with [place] pickups and entered sharply with the Metzenbaum scissors. His incision was then extended laterally with the Metzenbaum scissors and a bladder flap created digitally. The bladder blade was then reinserted and the lower uterine segment incised in a transverse fashion with the scalpel. The uterine incision was then extended bluntly. The bladder blade was removed and the 's head was delivered from cephalic presentation atraumatically. The nose and mouth were suctioned and the cord doubly clamped and cut. And the was handed off to waiting pediatricians. The placenta was then delivered manully and the uterus exteriorized and cleared of all clots and debris. The uterine incision was then repaired with 1-0 Vicryl in a running locked fashion. A second layer of the same suture was used to obtain hemostasis via imbrication of the initial layer. The uterus was returned to the patient's abdomen. The gutters were cleared of all clots and debris. All operative sites were noted to be hemostatic. The fascia was reapproximated with 0 Vicryl in a running fashion from each lateral edge to the midline. The patient tolerated the procedure well. Sponge lap needle and instrument counts are correct -2. 2 g of Ancef were given prior to skin incision. The patient was taken to the recovery area awake and in stable condition.
[2019-06-18] MEDS: DIPHENHYDRAMINE HCL 50 MG/ML VIAL ONE ×2 (10:14→10:30)
[2019-06-18] MEDS ORDERED: MEPERIDINE HCL/PF INJ 25 MG/1 ML DISP.SYRIN ONE (10:26)
[2019-06-18] MEDS: MORPHINE SULFATE 10 MG/ML INJ IM PRN ×2 (13:50→16:48)
[2019-06-18] MEDS: KETOROLAC TROMETHAMINE INJ/PF 30 MG/1 ML SDV IV SCH ×2 (14:08→21:38)
[2019-06-18] MEDS: PRENATAL VITAMIN W DHA CAPSULE PO SCH (14:08)
[2019-06-18] MEDS: DOCUSATE SODIUM 100 MG CAPSULE PO SCH ×2 (14:08→17:33)
[2019-06-19 06:09] LABS: HEMATOCRIT 27.9 % (36.0-47.0); HEMOGLOBIN 9.8 g/dL (12.0-15.5); MEAN CORPUSCULAR HGB CONC 35.2 g/dL (32.0-36.0); MEAN CORPUSCULAR VOLUME 88 fl (80-97); PLATELET COUNT 157 10^3/uL (150-450); RED BLOOD COUNT 3.17 10^6/uL (3.72-5.28); RED CELL DISTRIBUTION WIDTH 15.1 % (11.5-14.0); WHITE BLOOD COUNT 6.3 10^3/uL (4.0-10.5)
[2019-06-19] MEDS: KETOROLAC TROMETHAMINE INJ/PF 30 MG/1 ML SDV IV SCH (06:22)
[2019-06-19] MEDS: PRENATAL VITAMIN W DHA CAPSULE PO SCH (09:58)
[2019-06-19] MEDS: DOCUSATE SODIUM 100 MG CAPSULE PO SCH ×2 (09:58→17:29)
--- NOTE | 2019-06-19 11:09 | PDOC PROGRESS REPORT ---
Subjective-OB Progress Note for:: 06/19/19 Subjective: reports bleeding slowing, pain controlled with current meds. denies needs. reports passing gas Physical Exam (OB) Vital Signs: Temp Pulse Resp BP Pulse Ox 98.4 F 85 18 115/69 99 06/19/19 07:33 06/19/19 07:33 06/19/19 07:33 06/19/19 07:33 06/19/19 07:33 Intake & Output 06/18/19 06/19/19 06/20/19 06:59 06:59 06:59 Intake Total 2300 Output Total 2180 Balance 120 Weight 111.584 kg - Dressing Removed: Yes Incision: Open, Well Approximated Closure Type: Surgical Glue - Abdomen Description: Round Hernia Present: No Fundal Description: Firm, Midline Fundal Height: u/u - u/2 - Abdominal Distension: No distension Tenderness: Nontender - Extremities Lower extremities: Katerin's sign - neg Calf: Normal, Nontender Objective-Diagnostic Laboratory: 06/19/19 05:56 06/19/19 05:56 WBC 6.3 RBC 3.17 L Hgb 9.8 L Hct 27.9 L MCV 88 MCH 31.0 MCHC 35.2 RDW 15.1 H Plt Count 157 Assessment and Plan(PN) - Time Spent with Patient Time with patient: Less than 15 minutes - Disposition Anticipated Discharge: Home Within: within 48 hours
[2019-06-19] MEDS: IBUPROFEN 800 MG TABLET PO SCH ×3 (12:01→23:03)
[2019-06-19] MEDS ORDERED: MAG HYDROX/AL HYDROX/SIMETH SUSP 30 ML UDCUP PO PRN (15:49)
[2019-06-19] MEDS: FAMOTIDINE 20 MG TABLET PO SCH (17:29)
[2019-06-20] MEDS: IBUPROFEN 800 MG TABLET PO SCH ×2 (06:10→11:56)
[2019-06-20] MEDS: FAMOTIDINE 20 MG TABLET PO SCH (09:14)
[2019-06-20] MEDS: PRENATAL VITAMIN W DHA CAPSULE PO SCH (09:14)
[2019-06-20] MEDS: DOCUSATE SODIUM 100 MG CAPSULE PO SCH (09:14)
--- NOTE | 2019-06-20 11:36 | PDOC DISCHARGE SUMMARY ---
Impression - Admit/DC Date/PCP Admission Date/Primary Care Provider: 06/18/19 06:13 SERA PARSON MD Discharge Date: 06/20/19 - Discharge Diagnosis (1) Chlamydia infection affecting Is this a current diagnosis for this admission?: Yes (2) S/P repeat low transverse Is this a current diagnosis for this admission?: Yes - Additional Information Resuscitation Status: Full Code Discharge Diet: Regular Discharge Activity: Balance Activity w/Rest, No Lifting Over 10 Pounds, No Lifting/Push/Pulling, Pelvic Rest, No tub bath Referrals: SERA PARSON MD [Primary Care Provider] - Prescriptions: Ibuprofen [Motrin 800 mg Tablet] 800 mg PO Q8HP PRN #90 tablet PRN Reason: Oxycodone HCl/Acetaminophen [Percocet 5-325 mg Tablet] 1 tab PO Q4HP PRN #30 tablet PRN Reason: Home Medications: Docusate Sodium [Colace 100 mg Capsule] 100 mg PO BID capsule 06/20/19 Ibuprofen [Motrin 800 mg Tablet] 800 mg PO Q8HP PRN #90 tablet 06/20/19 Oxycodone HCl/Acetaminophen [Percocet 5-325 mg Tablet] 1 tab PO Q4HP PRN #30 tablet 06/20/19 Vit/Dha [ Multi + Dha Capsule] 1 cap PO DAILY capsule 06/20/19 Results Laboratory Results: WBC 6.3 10^3/uL (4.0-10.5) 06/19/19 05:56 RBC 3.17 10^6/uL (3.72-5.28) L 06/19/19 05:56 Hgb 9.8 g/dL (12.0-15.5) L 06/19/19 05:56 Hct 27.9 % (36.0-47.0) L 06/19/19 05:56 MCV 88 fl (80-97) 06/19/19 05:56 MCH 31.0 pg (27.0-33.4) 06/19/19 05:56 MCHC 35.2 g/dL (32.0-36.0) 06/19/19 05:56 RDW 15.1 % (11.5-14.0) H 06/19/19 05:56 Plt Count 157 10^3/uL (150-450) 06/19/19 05:56 Lymph % (Auto) 23.6 % (13-45) 06/15/19 08:45 [place] % (Auto) 6.6 % (3-13) 06/15/19 08:45 Eos % (Auto) 1.8 % (0-6) 06/15/19 08:45 Baso % (Auto) 0.2 % (0-2) 06/15/19 08:45 Absolute Neuts (auto) 4.2 10^3/uL (1.7-8.2) 06/15/19 08:45 Absolute Lymphs (auto) 1.5 10^3/uL (0.5-4.7) 06/15/19 08:45 Absolute Monos (auto) 0.4 10^3/uL (0.1-1.4) 06/15/19 08:45 Absolute Eos (auto) 0.1 10^3/uL (0.0-0.6) 06/15/19 08:45 Absolute Basos (auto) 0.0 10^3/uL (0.0-0.2) 06/15/19 08:45 Seg Neutrophils % 67.8 % (42-78) 06/15/19 08:45 Urine Color YELLOW 06/15/19 08:40 Urine Appearance CLEAR 06/15/19 08:40 Urine pH 6.0 (5.0-9.0) 06/15/19 08:40 Ur Specific [place] 1.013 06/15/19 08:40 Urine Protein NEGATIVE mg/dL (NEGATIVE) 06/15/19 08:40 Urine Glucose (UA) NEGATIVE mg/dL (NEGATIVE) 06/15/19 08:40 Urine Ketones NEGATIVE mg/dL (NEGATIVE) 06/15/19 08:40 Urine Blood NEGATIVE (NEGATIVE) 06/15/19 08:40 Urine Nitrite NEGATIVE (NEGATIVE) 06/15/19 08:40 Urine Bilirubin NEGATIVE (NEGATIVE) 06/15/19 08:40 Urine Urobilinogen NEGATIVE mg/dL (<2.0) 06/15/19 08:40 Ur Leukocyte Esterase TRACE (NEGATIVE) H 06/15/19 08:40 Urine WBC (Auto) 2 /HPF 06/15/19 08:40 Urine RBC (Auto) 1 /HPF 06/15/19 08:40 Urine Bacteria (Auto) TRACE /HPF 06/15/19 08:40 Squamous Epi Cells Auto 1 /HPF 06/15/19 08:40 Urine Mucus (Auto) RARE /LPF 06/15/19 08:40 Urine Ascorbic Acid 20 (NEGATIVE) H 06/15/19 08:40 Urine Opiates Screen NEGATIVE 06/15/19 08:40 Urine Methadone Screen NEGATIVE 06/15/19 08:40 Ur Barbiturates Screen NEGATIVE 06/15/19 08:40 Ur Phencyclidine Scrn NEGATIVE 06/15/19 08:40 Ur Amphetamines Screen NEGATIVE 06/15/19 08:40 U Benzodiazepines Scrn NEGATIVE 06/15/19 08:40 Urine Cocaine Screen NEGATIVE 06/15/19 08:40 U Cannabinoids Confirm Positive (.) A 06/15/19 08:12 U Marijuana (THC) Screen UNCONFIRMED POSITIVE 06/15/19 08:40 Blood Type O POSITIVE 06/17/19 09:25 Antibody Screen NEGATIVE 06/17/19 09:25 Plan Plan of Treatment: follow up in one week at [facility] for incision check and GC/CT recheck
[2019-06-20 11:46] VITALS: BP 124/86
== END 2019-06-20 14:40 | disposition home or self-care (01) | DRG 788 ==
LOC: 2S 06:13
PROVIDERS: ADMIT Obstetrics & Gynecology Gynecology; ATTEND Obstetrics & Gynecology Gynecology
PROC: 10D00Z1 Extraction of Products of Conception, Low, Open Approach (ICD-10-PCS; principal; 2019-06-18 09:00)
DX: O34.211 Maternal care for low transverse scar from previous cesarean delivery (principal); N85.8 Other specified noninflammatory disorders of uterus; Z3A.39 39 weeks gestation of pregnancy; Z37.0 Single live birth
CPT/HCPCS: 1961; 36415; 59025; 80307; 80349; 81001; 85025; 85027; 86850; 86900; 86901; 94799; G0480; J0690; J1200; J1885; J2175; J2250; J2270; J2405; J2590; J3010; J3490; J7060; J7120

== ENCOUNTER 2019-09-25 18:46 | Emergency (ER) | payer SELFPAY ==
[2019-09-25] MEDS ORDERED: IBUPROFEN 800 MG TABLET PO ONE (19:14)
--- NOTE | 2019-09-25 19:14 | ER Document Report ---
ED GI/ - General Chief Complaint: Pain With Urination Stated Complaint: PAINFUL URINATION Time Seen by Provider: 09/25/19 18:49 Primary Care Provider: SERA PARSON MD [Primary Care Provider] - Follow up as needed Mode of Arrival: Ambulatory Information source: Patient Notes: 29-year-old female presents to ED for complaint of painful urination with difficulty to urinate more than a small amount of the time. She states she has some cramping when she goes to urinate. Still has a headache. She is alert oriented respirations regular nonlabored speaking in full sentences. She has been afebrile. States she has no vaginal discharge. Patient is alert oriented respirations regular nonlabored speaking in full sentences. She did come in with her daughter who has a fever. TRAVEL OUTSIDE OF THE [place] IN LAST 30 DAYS: No - HPI Patient complains to provider of: Other - Burning with urination frequency urgency and cramping when she urinates and headache Timing/Duration: Gradual, Intermittent Quality of pain: Burning, Cramping Severity at maximum: Moderate Severity in ED: Moderate Pain Level: 3 Location: Pelvis, Other - Running with urination LMP: 2 weeks ago Associated symptoms: Urinary hesitancy, Urinary frequency, Other - Burning with urination. She states the cramps when she urinates and headache for today Exacerbated by: Other Relieved by: Denies - Urination Similar symptoms previously: Yes Recently seen / treated by doctor: No - Related Data Allergies/Adverse Reactions: No Known Allergies Allergy (Verified 06/15/19 09:07) Past Medical History - General Information source: Patient - Social History Smoking Status: Never Smoker Frequency of alcohol use: None Drug Abuse: None Lives with: Family Family History: Reviewed & Not Pertinent Patient has suicidal ideation: No Patient has homicidal ideation: No - Past Medical History Cardiac Medical History: Reports: None Pulmonary Medical History: Reports: None EENT Medical History: Reports: None Neurological Medical History: Reports: None Endocrine Medical History: Reports: None Renal/ Medical History: Reports: None Malignancy Medical History: Reports: None GI Medical History: Reports: None Musculoskeletal Medical History: Reports None Skin Medical History: Reports None Psychiatric Medical History: Reports: Hx Depression - & anxiety Traumatic Medical History: Reports: None Infectious Medical History: Reports: None Past Surgical History: Reports: Hx Gynecologic Surgery - Immunizations Hx Diphtheria, Pertussis, Tetanus Vaccination: Yes Review of Systems - Review of Systems Constitutional: No symptoms reported EENT: No symptoms reported Cardiovascular: No symptoms reported Respiratory: No symptoms reported Gastrointestinal: No symptoms reported Genitourinary: Burning, Frequency, Urgency, Other - Cramping with urination Female Genitourinary: denies: Vaginal discharge Musculoskeletal: No symptoms reported Skin: No symptoms reported Hematologic/Lymphatic: No symptoms reported Neurological/Psychological: Headaches -: Yes All other systems reviewed and negative Physical Exam - Vital signs Vitals: Temp Pulse Resp BP Pulse Ox 98.6 F 94 16 134/78 H 96 09/25/19 19:25 09/25/19 19:25 09/25/19 19:25 09/25/19 19:25 09/25/19 19:25 Interpretation: Normal - General General appearance: Appears well, Alert - HEENT Head: Normocephalic, Atraumatic Eyes: Normal Pupils: PERRL Ears: Normal External canal: Normal Tympanic membrane: Normal Sinus: Normal Nasal: Normal Mouth/Lips: Normal Mucous membranes: Normal Pharynx: Normal Neck: Normal - Respiratory Respiratory status: No respiratory distress Chest status: Nontender Breath sounds: Normal Chest palpation: Normal - Cardiovascular Rhythm: Regular Heart sounds: Normal auscultation Murmur: No - Abdominal Inspection: Normal Distension: No distension Bowel sounds: Normal Tenderness: Nontender Organomegaly: No organomegaly - Back Back: Normal, Nontender - Extremities General upper extremity: Normal inspection, Nontender, Normal color, Normal ROM, Normal temperature General lower extremity: Normal inspection, Nontender, Normal color, Normal ROM, Normal temperature, Normal weight bearing. No: Katerin's sign - Neurological Neuro grossly intact: Yes Cognition: Normal Orientation: AAOx4 Edward Coma Scale Eye Opening: Spontaneous Edward Coma Scale Verbal: Oriented Edward Coma Scale Motor: Obeys Commands Stephen Coma Scale Total: 15 Speech: Normal Motor strength normal: LUE, RUE, LLE, RLE Sensory: Normal - Psychological Associated symptoms: Normal affect, Normal mood - Skin Skin Temperature: Warm Skin Moisture: Dry Skin Color: Normal Course - Re-evaluation Re-evalutation: 09/26/19 01:02 Patient was positive for UTI. She was treated with Cipro and Pyridium and discharged home with a prescription for Cipro and Pyridium. Patient verbalized understanding and agreement with treatment plan and patient was discharged home. - Vital Signs Vital signs: Temp Pulse Resp BP Pulse Ox 98.0 F 87 16 130/83 H 98 09/25/19 21:04 09/25/19 21:04 09/25/19 21:04 09/25/19 21:04 09/25/19 21:04 - Laboratory Laboratory results interpreted by me: 09/25/19 19:50 Urine Protein 100 H Ur Leukocyte Esterase LARGE H Urine Ascorbic Acid 40 H Discharge - Discharge Clinical Impression: UTI (urinary tract infection) Qualifiers: Urinary tract infection type: site unspecified Hematuria presence: with hematuria Qualified Code(s): N39.0 - Urinary tract infection, site not specified Condition: Stable Disposition: HOME, SELF-CARE Additional Instructions: URINARY TRACT INFECTION: Your evaluation indicates that you have a urinary tract infection. This is due to germs growing in the bladder. This is a common problem. This infection usually responds quickly to antibiotics. Your antibiotic should be taken exactly as prescribed. Drink plenty of fluids -- three to four quarts a day. Occasionally, a bladder anesthetic will be prescribed to help stop the feeling of urgency until the antibiotic has a chance to clear the infection. This may cause your urine to be dark orange. Certain urine infections require a culture. If the doctor obtained a culture, the results will be back in two days. You should call to see if a change in treatment is needed. A repeat urinalysis after you finish treatment is often recommended. The physician will let you know if further testing is required. Call the doctor if you develop fever, chills, flank pain, inability to urinate, or blood in the urine. CIPROFLOXACIN: You have been given an antibacterial agent, ciprofloxacin (Cipro). This medicine is not related to the penicillins, sulfas, cephalosporins, or tetracyclines. It is often given to patients who are allergic to these drugs. It has been chosen for you either because other drugs are not appropriate, or because of the nature of your problem. Cipro should not be taken with antacids, as these can decrease its effectiveness. It can be taken without regard to meals. CIPRO SHOULD NOT BE TAKEN BY CHILDREN, NURSING WOMEN, OR WOMEN. Although Cipro is usually well-tolerated, common side effects can include nausea and diarrhea. Contact your doctor if you experience any unusual symptoms while on this medication, such as joint pain or swelling, shortness of breath, wheezing, faintness, or hives. URINARY ANESTHETIC AGENT: You have been given a medication (Pyridium) for urinary tract discomfort. This medicine numbs the lining of the bladder and urethra, resulting in less pain, burning, and urgency. You may take it as needed, according to instructions. When the symptoms resolve, you can stop this medication (be sure to continue any other medications the doctor has given you). This medicine turns the urine a dark orange. It may stain underwear. Occasionally, it can cause nausea. Return for evaluation if there are any unexpected effects, such as itching, hives, or shortness of breath. FOLLOW-UP CARE: If you have been referred to a physician for follow-up care, call the physicians office for an appointment as you were instructed or within the next two days. If you experience worsening or a significant change in your symptoms, notify the physician immediately or return to the Emergency Department at any time for re-evaluation. Prescriptions: Ciprofloxacin HCl [Cipro 500 mg Tablet] 500 mg PO BID #10 tablet Phenazopyridine HCl [Pyridium 100 Mg Tablet] 100 mg PO TID #14 tablet Forms: Elevated Blood Pressure Referrals: SERA PARSON MD [Primary Care Provider] - Follow up as needed
[2019-09-25 20:17] LABS: APPEARANCE,URINE CLOUDY; BILIRUBIN,URINE NEGATIVE (NEGATIVE); COLOR,URINE YELLOW; GLUCOSE, URINE NEGATIVE (NEGATIVE); KETONES,URINE NEGATIVE (NEGATIVE); LEUKOCYTE ESTERASE,URINE LARGE (NEGATIVE); NITRITE,URINE NEGATIVE (NEGATIVE); PROTEIN,URINE 100 mg/dL (NEGATIVE); UROBILINOGEN,URINE NEGATIVE mg/dL (<2.0)
[2019-09-25] MEDS ORDERED: CIPROFLOXACIN HCL 500 MG TABLET PO ONE (20:45)
[2019-09-25] MEDS ORDERED: PHENAZOPYRIDINE HCL 100 MG TABLET PO ONE (20:47)
[2019-09-25 21:05] VITALS: BP 130/83
== END 2019-09-25 21:19 | disposition home or self-care (01) ==
LOC: ER 18:46
DX: N39.0 Urinary tract infection, site not specified (principal); R31.9 Hematuria, unspecified; R51 Headache
CPT/HCPCS: 99283; 87086; 81025; 87088; 81001; 87186; J3490

== ENCOUNTER 2019-12-03 19:21 | Emergency (ER) | payer SELFPAY ==
--- NOTE | 2019-12-03 20:41 | ER Document Report ---
ED Medical Screen (RME) - General Chief Complaint: Pain With Urination Stated Complaint: PAINFUL URINATION Time Seen by Provider: 12/03/19 20:35 Primary Care Provider: SERA PARSON MD [Primary Care Provider] - Follow up as needed Information source: Patient Notes: Patient presents complaining of pelvic cramping and some dysuria symptoms. Patient denies any fever, vaginal bleeding or discharge. Patient is concerned about possible STI. I have greeted and performed a rapid initial assessment of this patient. A comprehensive ED assessment and evaluation of the patient, analysis of test results and completion of the medical decision making process will be conducted by additional ED providers. TRAVEL OUTSIDE OF THE [place] IN LAST 30 DAYS: No - Related Data Allergies/Adverse Reactions: No Known Allergies Allergy (Verified 06/15/19 09:07) Past Medical History - Social History Family history: Reviewed & Not Pertinent Pulmonary Medical History: Denies: Hx Asthma, Hx Sleep Apnea, Hx Tuberculosis Renal/ Medical History: Denies: Hx Kidney Stones, Hx Peritoneal Dialysis GI Medical History: Denies: Hx Gastroesophageal Reflux Disease, Hx Hiatal Hernia, Hx Ulcer Musculoskeltal Medical History: Denies Hx Fibromyalgia Psychiatric Medical History: Reports: Hx Depression - & anxiety Traumatic Medical History: Denies: Hx Fractures Past Surgical History: Reports: Hx Gynecologic Surgery - Immunizations Hx Diphtheria, Pertussis, Tetanus Vaccination: Yes Physical Exam - Abdominal Tenderness: Tender - Lower pelvic Doctor's Discharge - Discharge Referrals: SERA PARSON MD [Primary Care Provider] - Follow up as needed
[2019-12-03 21:11] LABS: BACTERIA (WET MOUNT) 3+ BACTERIA SEEN; EPITHELIALS (WET MOUNT) 4+ EPITHELIALS SEEN; T.VAGINALIS (WET MOUNT) NO TRICHOMONAS SEEN; WBCS (WET MOUNT) 1+ WBCS SEEN; YEAST (WET MOUNT) NO YEAST SEEN
[2019-12-03 21:40] LABS: APPEARANCE,URINE CLEAR; BILIRUBIN,URINE NEGATIVE (NEGATIVE); COLOR,URINE AMBER; GLUCOSE, URINE NEGATIVE (NEGATIVE); KETONES,URINE TRACE mg/dL (NEGATIVE); LEUKOCYTE ESTERASE,URINE SMALL (NEGATIVE); NITRITE,URINE POSITIVE (NEGATIVE); PROTEIN,URINE 30 mg/dL (NEGATIVE); URINE SPECIFIC GRAVITY 1.027
[2019-12-03 22:43] LABS: CHLAM PCR NOT DETECTED (NOT DETECT)
[2019-12-03] MEDS ORDERED: SULFAMETHOXAZOLE/TRIMETHOPRIM 800-160 MG TABLET PO ONE (23:24)
--- NOTE | 2019-12-03 23:28 | ER Document Report ---
ED General - General Chief Complaint: Pain With Urination Stated Complaint: PAINFUL URINATION Time Seen by Provider: 12/03/19 20:35 Primary Care Provider: SERA PARSON MD [Primary Care Provider] - Follow up as needed Notes: Patient is a 29-year-old white female with no significant past medical history presents the emergency department the chief complaint of dysuria. She reports the past few days she is been having pain with urination and difficulty urinating. She states she was seen here recently for UTI and failed to take the medication as prescribed. She states she thinks the UTI never went away. She states her boyfriend was having some difficulties as well and they were concerned for possible transmission of UTI versus STD. The patient denies any vaginal bleeding or discharge. Denies abdominal pain or back pain. No fevers, nausea vomiting diarrhea, chills or night sweats. TRAVEL OUTSIDE OF THE [place] IN LAST 30 DAYS: No - Related Data Allergies/Adverse Reactions: No Known Allergies Allergy (Verified 06/15/19 09:07) Past Medical History - General Information source: Patient - Social History Smoking Status: Unknown if Ever Smoked Family History: Reviewed & Not Pertinent Pulmonary Medical History: Denies: Hx Asthma, Hx Sleep Apnea, Hx Tuberculosis Renal/ Medical History: Denies: Hx Kidney Stones, Hx Peritoneal Dialysis GI Medical History: Denies: Hx Gastroesophageal Reflux Disease, Hx Hiatal Hernia, Hx Ulcer Musculoskeletal Medical History: Denies Hx Fibromyalgia Psychiatric Medical History: Reports: Hx Depression - & anxiety Traumatic Medical History: Denies: Hx Fractures Past Surgical History: Reports: Hx Gynecologic Surgery - Immunizations Hx Diphtheria, Pertussis, Tetanus Vaccination: Yes Review of Systems - Review of Systems Constitutional: denies: Fever EENT: denies: Eye pain Cardiovascular: denies: Syncope Respiratory: denies: Cough Gastrointestinal: denies: Nausea, Constipation Genitourinary: Pain Female Genitourinary: denies: Musculoskeletal: denies: Deformity Skin: denies: Change in color Hematologic/Lymphatic: denies: Easy bruising Neurological/Psychological: denies: Confusion Physical Exam - Vital signs Vitals: Temp Pulse Resp BP Pulse Ox 98.2 F 83 16 144/98 H 97 12/03/19 20:32 12/03/19 20:32 12/03/19 20:32 12/03/19 20:32 12/03/19 20:32 - General General appearance: Appears well, Alert In distress: None - Respiratory Respiratory status: No respiratory distress Chest status: Nontender Breath sounds: Normal Chest palpation: Normal - Cardiovascular Rhythm: Regular Heart sounds: Normal auscultation - Abdominal Inspection: Normal Distension: No distension Bowel sounds: Normal Tenderness: Nontender Organomegaly: No organomegaly - Back Back: No: CVA tenderness - Neurological Neuro grossly intact: Yes Cognition: Normal Orientation: AAOx4 - Psychological Associated symptoms: Normal affect, Normal mood - Skin Skin Temperature: Warm Skin Moisture: Dry Skin Color: Normal Course - Re-evaluation Re-evalutation: 12/03/19 23:26 GC negative. Wet prep negative. UTI on urinalysis. Suspect noncompliance with prior regimen. Will start on Bactrim. First dose given here. Discussed with her the importance of taking the medication prescribed. Encouraged push clear fluids. Advise she return here or any ER immediately with any new, persistent or worsening symptoms. Encourage close outpatient follow-up as discussed. She verbalized understood and agreed. - Vital Signs Vital signs: Temp Pulse Resp BP Pulse Ox 98.2 F 83 16 144/98 H 97 12/03/19 20:32 12/03/19 20:32 12/03/19 20:32 12/03/19 20:32 12/03/19 20:32 - Laboratory Laboratory results interpreted by me: 12/03/19 20:37 Urine Protein 30 H Urine Ketones TRACE H Urine Nitrite POSITIVE H Urine Urobilinogen 4.0 H Ur Leukocyte Esterase SMALL H Discharge - Discharge Clinical Impression: UTI (urinary tract infection) Qualifiers: Urinary tract infection type: acute cystitis Hematuria presence: without hematuria Qualified Code(s): N30.00 - Acute cystitis without hematuria Condition: Stable Disposition: HOME, SELF-CARE Instructions: Urinary Tract Infection ([facility]) Additional Instructions: Follow-up with your regular doctor in 2 to 3 days for reevaluation. Return here or any ER immediately with any new, persistent or worsening symptoms. Prescriptions: Sulfamethoxazole/Trimethoprim [Bactrim Ds Tablet] 1 each PO BID #10 tablet Referrals: SERA PARSON MD [Primary Care Provider] - Follow up as needed [facility] - Follow up as needed
[2019-12-04 00:42] VITALS: BP 157/90
== END 2019-12-04 06:24 | disposition home or self-care (01) ==
LOC: ER 19:21
DX: N30.00 Acute cystitis without hematuria (principal)
CPT/HCPCS: 81001; 81025; 87210; 87491; 87591; 99283